=== PATIENT | male | born 1965 ===

== ENCOUNTER 2018-10-07 16:59 | Inpatient (IN) ==
[2018-10-07] MEDS ORDERED: SODIUM CHLORIDE 0.9% 500 ML IV STA (17:23)
[2018-10-07 18:04] LABS: Basophils % 0.2 % (0.0-0.8); Eosinophils % 0.1 % (0.00-10.9); Hematocrit 41.5 VOL% (42.0-52.0); Hemoglobin 13.9 GM/DL (14.0-18.0); Immature Granulocytes % 0.5 %; Immature Granulocytes Absolute 0.06 #; Lymphocytes # 1.3 10*3/uL (1.4-4.0); Lymphocytes % 10.6 % (21.2-54.2); Mean Corpuscular HGB Conc 33.5 GM/DL (32-36); Mean Corpuscular Volume 91.6 FL (87-102); Monocytes % 11.8 % (1.7-12.7); Neutrophils % 76.8 % (38.7-73.9); Platelet Count 250 T/CUMM (130-400); Red Blood Count 4.53 MC/CUMM (3.8-5.5); Red Cell Distribution Width 12.6 % (9.3-17.3); White Blood Count 12.5 T/CUMM (4-12)
[2018-10-07] MEDS ORDERED: VANCOMYCIN INJ 1,000 MG in SODIUM CHLORIDE 0.9% 250 ML IV STA (18:18)
[2018-10-07] MEDS ORDERED: CEFTAROLINE 600 MG in SODIUM CHLORIDE 0.9% 100 ML IV STA (18:18)
[2018-10-07 18:22] LABS: Albumin 3.6 G/DL (3.4-5.0); Bilirubin,Total 0.8 MG/DL (0.2-1.0); Osmolality,Calculated 271.1 MOS/KG (273-304); Total Protein 8.9 G/DL (6.4-8.3); Uric Acid 5.9 MG/DL (3.5-7.2)
[2018-10-07 19:05] LABS: Sedimentation Rate-Westergren 70 MM/HR (0-20)
[2018-10-07] MEDS ORDERED: MORPHINE 4 MG/1 ML VIAL IV PRN (20:04)
[2018-10-07] MEDS ORDERED: diphenhydrAMINE CAP 25 MG CAPSULE PO PRN (20:04)
[2018-10-07] MEDS ORDERED: ZALEPLON 5 MG CAPSULE PO PRN (20:04)
[2018-10-07] MEDS ORDERED: NICOTINE 21 MG/24 HR PATCH TRANSDERM PRN (20:04)
[2018-10-07] MEDS ORDERED: BISACODYL 5 MG TABLET PO PRN (20:04)
[2018-10-07] MEDS ORDERED: guaiFENesin/DM ER 600-30 MG TABLET PO PRN (20:04)
[2018-10-07] MEDS ORDERED: ONDANSETRON 4 MG/2 ML VIAL IV PRN (20:04)
[2018-10-07] MEDS ORDERED: ALLOPURINOL 100 MG TABLET PO SCH (21:45)
[2018-10-08 04:49] LABS: Basophils % 0.2 % (0.0-0.8); Hemoglobin 12.4 GM/DL (14.0-18.0); Immature Granulocytes % 0.5 %; Immature Granulocytes Absolute 0.07 #; Lymphocytes # 1.2 10*3/uL (1.4-4.0); Lymphocytes % 8.7 % (21.2-54.2); Mean Corpuscular HGB Conc 34.4 GM/DL (32-36); Mean Corpuscular Volume 90.5 FL (87-102); Mean Platelet Volume 9.6 FL (9.6-12.0); Monocytes % 11.8 % (1.7-12.7); Neutrophils % 78.8 % (38.7-73.9); Platelet Count 244 T/CUMM (130-400); Red Blood Count 3.98 MC/CUMM (3.8-5.5); Red Cell Distribution Width 12.5 % (9.3-17.3); White Blood Count 13.9 T/CUMM (4-12)
[2018-10-08 05:28] LABS: Albumin 3.1 G/DL (3.4-5.0); Bilirubin,Total 0.9 MG/DL (0.2-1.0); Calcium 8.3 MG/DL (8.5-10.1); Total Protein 7.8 G/DL (6.4-8.3)
[2018-10-08 05:38] LABS: Apearance,Urine CLEAR (Clear); Bacteria,Urine Occasional /HPF (Few); Bilirubin,Urine Negative (Negative); Blood, Urine Negative (Negative); Glucose,Urine (UA) Negative (Negative); Ketones,Urine Negative (Negative); Mucus,Urine Occasional /LPF (Occasional); Nitrite,Urine Negative (Negative); Protein,Urine Negative; Squamous Epithelial Cell,Urine Occasional /HPF (0-10); Urine Color Yellow (Yellow); Urine Specific Gravity 1.012 (1.001-1.035); Urine Urobilinogen < 2.0 EU/DL (0.2-1.0); WBC,Urine 1 /HPF (0-6)
[2018-10-08] MEDS: VANCOMYCIN INJ 1,500 MG in SODIUM CHLORIDE 0.9% 500 ML IV SCH ×2 (07:47→17:12)
[2018-10-08] MEDS ORDERED: amLODIPine 5 MG TABLET PO SCH (09:00)
[2018-10-08] MEDS: SIMVASTATIN 20 MG TABLET PO SCH (09:24)
[2018-10-08] MEDS: PANTOPRAZOLE 40 MG TABLET PO SCH (09:24)
[2018-10-08] MEDS: amLODIPine 5 MG TABLET PO SCH (09:24)
[2018-10-08] MEDS: BENAZEPRIL 10 MG TABLET PO SCH (09:24)
[2018-10-08] MEDS: ALLOPURINOL 100 MG TABLET PO SCH (09:24)
[2018-10-08] MEDS: INDOMETHACIN SR 75 MG CAPSULE PO SCH ×2 (11:00→21:00)
[2018-10-08] MEDS: ACETAMINOPHEN 325 MG TABLET PO PRN ×2 (12:53→17:10)
[2018-10-08] MEDS ORDERED: LORazepam 2 MG/1 ML VIAL IV PRN (20:15)
[2018-10-08] MEDS ORDERED: THIAMINE INJ 100 MG, FOLIC ACID INJ 1 MG, MULTIVITAMIN INJ 10 ML in SODIUM CHLORIDE 0.9... IV ONE (21:00)
[2018-10-09] MEDS ORDERED: LORazepam 2 MG/1 ML VIAL IV STA (05:58)
[2018-10-09] MEDS: VANCOMYCIN INJ 1,500 MG in SODIUM CHLORIDE 0.9% 500 ML IV SCH ×2 (07:31→20:15)
[2018-10-09] MEDS ORDERED: LORazepam 2 MG/1 ML VIAL IV ONE (08:06)
[2018-10-09 08:31] LABS: Basophils % 0.2 % (0.0-0.8); Eosinophils % 0.1 % (0.00-10.9); Hemoglobin 12.1 GM/DL (14.0-18.0); Immature Granulocytes % 0.3 %; Immature Granulocytes Absolute 0.04 #; Lymphocytes # 0.7 10*3/uL (1.4-4.0); Lymphocytes % 5.7 % (21.2-54.2); Mean Corpuscular HGB Conc 34.6 GM/DL (32-36); Mean Corpuscular Volume 90.7 FL (87-102); Monocytes % 9.6 % (1.7-12.7); Neutrophils % 84.1 % (38.7-73.9); Platelet Count 243 T/CUMM (130-400); Red Blood Count 3.86 MC/CUMM (3.8-5.5); Red Cell Distribution Width 12.8 % (9.3-17.3); White Blood Count 12.6 T/CUMM (4-12)
[2018-10-09 08:40] LABS: PT Patient Result 11.3 SECS; Partial Thromboplastin Time 31.1 SECS (0-40)
[2018-10-09] MEDS ORDERED: chlordiazePOXIDE 10 MG CAPSULE PO SCH (09:00)
[2018-10-09 09:07] LABS: Albumin 2.6 G/DL (3.4-5.0); Bilirubin,Total 0.7 MG/DL (0.2-1.0); Calcium 8.2 MG/DL (8.5-10.1); Osmolality,Calculated 277.7 MOS/KG (273-304); Total Protein 7.4 G/DL (6.4-8.3)
[2018-10-09] MEDS: LEVOFLOXACIN INJ 500 MG in PREMIX 1 EACH IV SCH (11:45)
[2018-10-09] MEDS: SODIUM CHLORIDE 0.9% 1,000 ML IV SCH ×3 (11:46→21:32)
[2018-10-09] MEDS: SIMVASTATIN 20 MG TABLET PO SCH (13:59)
[2018-10-09] MEDS: INDOMETHACIN SR 75 MG CAPSULE PO SCH ×2 (13:59→20:15)
[2018-10-09] MEDS: amLODIPine 5 MG TABLET PO SCH (14:00)
[2018-10-09] MEDS: BENAZEPRIL 10 MG TABLET PO SCH (14:01)
[2018-10-09] MEDS: ALLOPURINOL 100 MG TABLET PO SCH (14:01)
[2018-10-09] MEDS: PANTOPRAZOLE 40 MG TABLET PO SCH (14:01)
[2018-10-10 05:31] LABS: Basophils % 0.3 % (0.0-0.8); Eosinophils # 0.2 10*3/uL (0.0-0.87); Eosinophils % 1.6 % (0.00-10.9); Hematocrit 38.4 VOL% (42.0-52.0); Hemoglobin 12.8 GM/DL (14.0-18.0); Immature Granulocytes % 0.8 %; Immature Granulocytes Absolute 0.09 #; Lymphocytes # 1.5 10*3/uL (1.4-4.0); Mean Corpuscular HGB Conc 33.3 GM/DL (32-36); Monocytes % 9.6 % (1.7-12.7); Neutrophils % 74.7 % (38.7-73.9); Red Blood Count 4.13 MC/CUMM (3.8-5.5); Red Cell Distribution Width 12.6 % (9.3-17.3); White Blood Count 11.2 T/CUMM (4-12)
[2018-10-10 05:33] LABS: Platelet Count 217 T/CUMM (130-400)
[2018-10-10 05:44] LABS: Albumin 2.1 G/DL (3.4-5.0); Bilirubin,Total 0.6 MG/DL (0.2-1.0); Calcium 8.1 MG/DL (8.5-10.1); Osmolality,Calculated 278.5 MOS/KG (273-304)
[2018-10-10] MEDS: SIMVASTATIN 20 MG TABLET PO SCH (09:11)
[2018-10-10] MEDS: INDOMETHACIN SR 75 MG CAPSULE PO SCH ×2 (09:11→21:23)
[2018-10-10] MEDS: FOLIC ACID 1 MG TABLET PO SCH (09:11)
[2018-10-10] MEDS: ALLOPURINOL 100 MG TABLET PO SCH (09:11)
[2018-10-10] MEDS: MULTIVITAMIN (CENTRUM) TABLET PO SCH (09:11)
[2018-10-10] MEDS: THIAMINE 100 MG TABLET PO SCH (09:11)
[2018-10-10] MEDS: PANTOPRAZOLE 40 MG TABLET PO SCH (09:11)
[2018-10-10] MEDS: SODIUM CHLORIDE 0.9% 1,000 ML IV SCH ×2 (09:12→16:25)
[2018-10-10] MEDS: VANCOMYCIN INJ 1,500 MG in SODIUM CHLORIDE 0.9% 500 ML IV SCH ×2 (09:20→21:23)
[2018-10-10] MEDS: methylPREDNISolone SOD SUC 40 MG/1 ML VIAL IV SCH ×2 (10:02→21:28)
[2018-10-10] MEDS: ENOXAPARIN 40 MG/0.4 ML SYRINGE SUBCUT SCH (10:02)
[2018-10-10] MEDS: LEVOFLOXACIN INJ 500 MG in PREMIX 1 EACH IV SCH (11:30)
[2018-10-10] MEDS: BENAZEPRIL 10 MG TABLET PO SCH (13:18)
[2018-10-10] MEDS: amLODIPine 5 MG TABLET PO SCH (13:18)
[2018-10-11 04:40] LABS: Basophils % 0.1 % (0.0-0.8); Hematocrit 34.8 VOL% (42.0-52.0); Hemoglobin 12.2 GM/DL (14.0-18.0); Immature Granulocytes % 0.6 %; Immature Granulocytes Absolute 0.08 #; Lymphocytes # 0.5 10*3/uL (1.4-4.0); Lymphocytes % 3.6 % (21.2-54.2); Mean Corpuscular HGB Conc 35.1 GM/DL (32-36); Mean Corpuscular Volume 89.2 FL (87-102); Mean Platelet Volume 9.4 FL (9.6-12.0); Monocytes % 1.7 % (1.7-12.7); Platelet Count 277 T/CUMM (130-400); Red Cell Distribution Width 12.2 % (9.3-17.3); White Blood Count 14.5 T/CUMM (4-12)
[2018-10-11 05:08] LABS: Calcium 8.4 MG/DL (8.5-10.1); Osmolality,Calculated 289.1 MOS/KG (273-304)
[2018-10-11 05:15] LABS: Lymphocytes 3 % (20-55); Segmented Neutrophils 96 % (50-85); Total Cells Counted 100
[2018-10-11 05:16] LABS: Microcytosis 1+
[2018-10-11 05:17] LABS: Platelet Estimate Normal
[2018-10-11] MEDS: VANCOMYCIN INJ 1,500 MG in SODIUM CHLORIDE 0.9% 500 ML IV SCH (09:18)
[2018-10-11] MEDS: ENOXAPARIN 40 MG/0.4 ML SYRINGE SUBCUT SCH (09:18)
[2018-10-11] MEDS: ALLOPURINOL 100 MG TABLET PO SCH (09:18)
[2018-10-11] MEDS: MULTIVITAMIN (CENTRUM) TABLET PO SCH (09:18)
[2018-10-11] MEDS: PANTOPRAZOLE 40 MG TABLET PO SCH (09:18)
[2018-10-11] MEDS: FOLIC ACID 1 MG TABLET PO SCH (09:18)
[2018-10-11] MEDS: methylPREDNISolone SOD SUC 40 MG/1 ML VIAL IV SCH ×2 (09:18→21:16)
[2018-10-11] MEDS: SIMVASTATIN 20 MG TABLET PO SCH (09:19)
[2018-10-11] MEDS: THIAMINE 100 MG TABLET PO SCH (09:19)
[2018-10-11] MEDS: SODIUM CHLORIDE 0.9% 1,000 ML IV SCH ×3 (09:22→21:45)
[2018-10-11] MEDS: INDOMETHACIN SR 75 MG CAPSULE PO SCH ×2 (12:47→21:16)
[2018-10-11] MEDS: LEVOFLOXACIN INJ 500 MG in PREMIX 1 EACH IV SCH (13:02)
[2018-10-11] MEDS: LORazepam 2 MG/1 ML VIAL IV PRN (16:35)
[2018-10-12] MEDS: LORazepam 2 MG/1 ML VIAL IV PRN (00:28)
[2018-10-12 04:30] LABS: Basophils % 0.1 % (0.0-0.8); Hematocrit 32.5 VOL% (42.0-52.0); Hemoglobin 10.8 GM/DL (14.0-18.0); Immature Granulocytes % 0.6 %; Immature Granulocytes Absolute 0.08 #; Lymphocytes # 0.6 10*3/uL (1.4-4.0); Lymphocytes % 4.2 % (21.2-54.2); Mean Corpuscular HGB Conc 33.2 GM/DL (32-36); Mean Platelet Volume 9.5 FL (9.6-12.0); Monocytes % 3.2 % (1.7-12.7); Neutrophils % 91.9 % (38.7-73.9); Platelet Count 264 T/CUMM (130-400); Red Blood Count 3.57 MC/CUMM (3.8-5.5); Red Cell Distribution Width 12.6 % (9.3-17.3); White Blood Count 14.5 T/CUMM (4-12)
[2018-10-12 04:48] LABS: Calcium 7.8 MG/DL (8.5-10.1)
[2018-10-12 04:54] LABS: Lymphocytes 3 % (20-55); Platelet Estimate Normal; Segmented Neutrophils 95 % (50-85); Total Cells Counted 100
[2018-10-12] MEDS: SIMVASTATIN 20 MG TABLET PO SCH (10:07)
[2018-10-12] MEDS: FOLIC ACID 1 MG TABLET PO SCH (10:07)
[2018-10-12] MEDS: ALLOPURINOL 100 MG TABLET PO SCH (10:07)
[2018-10-12] MEDS: PANTOPRAZOLE 40 MG TABLET PO SCH (10:07)
[2018-10-12] MEDS: MULTIVITAMIN (CENTRUM) TABLET PO SCH (10:07)
[2018-10-12] MEDS: THIAMINE 100 MG TABLET PO SCH (10:07)
[2018-10-12] MEDS: methylPREDNISolone SOD SUC 40 MG/1 ML VIAL IV SCH (10:08)
[2018-10-12] MEDS: ENOXAPARIN 40 MG/0.4 ML SYRINGE SUBCUT SCH (10:08)
[2018-10-12] MEDS: SODIUM CHLORIDE 0.9% 1,000 ML IV SCH (10:09)
[2018-10-12] MEDS: INDOMETHACIN SR 75 MG CAPSULE PO SCH (10:10)
[2018-10-12 11:51] VITALS: BP 115/56
== END 2018-10-12 15:42 | disposition home or self-care (01) | DRG 553 ==
LOC: EDUNIT# → EDBD → N.ED 16:59 → N.EDINP 20:04 → SUATTDRO 20:04 → N.5E 20:39 → N.CC 10-09 08:37 → N.2E 10-10 19:56
PROVIDERS: ATTEND Internal Medicine